=== PATIENT | male | born 1995 | race Caucasian/White ===

== ENCOUNTER 2020-02-22 23:20 | Emergency (ER) | payer OTHER ==
[~2020-02-22] VITALS: Ht 167.6 cm; Wt 68.2 kg
[~2020-02-22 23:20] MED LIST: ALBUTEROL INHALER; NO HOME MEDICATIONS; OCUFLOX OPHTH DR5 ML OU; PRILOSEC 20MG20 MG PO; TESSALON P100 MG/CAP PO; VENTOLIN0.09 MG IH; ZITHROMAX Z PA250 MG PO; ZOFRAN 4MG T4 MG/TAB PO
[2020-02-22 23:53] VITALS: BP 149/72
[2020-02-23] MEDS ORDERED: CLEOCIN HCL300 MG PO (00:21)
[2020-02-23] MEDS ORDERED: PERIDEX (CHLOR480 ML MM (00:21)
[2020-02-23 00:46] LABS: STREP SCREEN NEGATIVE
[2020-02-23 00:53] VITALS: PULSE 115; TEMP 100
== END 2020-02-23 00:53 | disposition home or self-care (01) ==
LOC: COL.ER 23:20
PROVIDERS: Physician Assistant
DX: K05.10 Chronic gingivitis, plaque induced (principal)